=== PATIENT | female | born 2000 | race African-American/Black ===

== ENCOUNTER 2021-07-26 13:50 | Emergency (ER) | payer MEDICAID ==
[~2021-07-26] VITALS: Ht 167.6 cm; Wt 54.0 kg
[2021-07-26 14:28] VITALS: BP 128/68
[2021-07-26] MEDS ORDERED: ACETAMINOPHEN 325MG TABLET PO ONE (15:00)
[2021-07-26] MEDS ORDERED: SODIUM CHLORIDE 0.9% 1,000 ML IV ONE (15:00)
[2021-07-26 15:01] LABS: BASOPHILS % 0.3 % (0.0-2.0); EOSINOPHILS % 0.2 % (0.0-5.0); HEMATOCRIT. 38.2 % (36.0-48.0); HEMOGLOBIN. 12.9 g/dL (12.0-16.0); LYMPHOCYTES % 21.5 % (20.0-50.0); MEAN CORPUSCULAR HEMOGLOBIN 30.1 pg (28.0-32.0); MEAN CORPUSCULAR VOLUME 89.2 fL (81.0-99.0); MEAN PLATELET VOLUME 8.9 fl (7.4-10.4); MONOCYTES % 11.6 % (2.0-8.0); NEUTROPHILS % 66.4 % (40.0-76.0); PLATELET 266 x1000/uL (130-400); RED BLOOD CELL COUNT 4.28 mill/uL (4.2-5.4); RED CELL DISTRIBUTION WIDTH 16.4 % (11.6-14.6)
[2021-07-26 15:05] LABS: CHLORIDE 105 mEq/L (98-107)
[2021-07-26 15:39] LABS: B-HCG QUANTITATIVE 122629 mIU/mL (<3)
[2021-07-26] MEDS ORDERED: METOCLOPRAMIDE HCL 10MG/2ML VIAL IV NR (17:00)
[2021-07-26] MEDS ORDERED: ACET-2708 MT (18:22)
[2021-07-26] MEDS ORDERED: METO-293 MT (18:22)
== END 2021-07-26 18:45 | disposition home or self-care (01) ==
LOC: ER 13:50
DX: O20.0 Threatened abortion (principal); O44.01 Complete placenta previa NOS or without hemorrhage, first trimester; Z3A.12 12 weeks gestation of pregnancy
CPT/HCPCS: 36415; 76801; 80053; 84702; 85025; 86850; 86900; 96360; 99284